=== PATIENT | male | born 1955 | race Caucasian/White ===

== ENCOUNTER 2022-04-02 23:25 | Emergency (ER) | payer MEDICARE, OTHER ==
[2022-04-02 23:58] LABS: HEMOGLOBIN 16.3 gm/dl (14.0-17.5); RED BLOOD COUNT 5.25 M/UL (4.20-5.50); WHITE BLOOD COUNT 9.2 K/UL (4.5-11.0)
[2022-04-03 00:20] LABS: BUN/CREATININE RATIO 17 (0-10)
== END 2022-04-03 04:43 | disposition left against medical advice (07) ==
LOC: ER1 23:25
PROVIDERS: Physician Assistant; Student in an Organized Health Care Education/Training Program
DX: S09.90XA Unspecified injury of head, initial encounter (principal); S39.012A Strain of muscle, fascia and tendon of lower back, initial encounter; S16.1XXA Strain of muscle, fascia and tendon at neck level, initial encounter; R41.0 Disorientation, unspecified; R07.89 Other chest pain; K21.9 Gastro-esophageal reflux disease without esophagitis; I10 Essential (primary) hypertension; F17.200 Nicotine dependence, unspecified, uncomplicated; W01.10XA Fall on same level from slipping, tripping and stumbling with subsequent striking against unspecified object, initial encounter
CPT/HCPCS: 70450; 71045; 72125; 72131; 80053; 80307; 81001; 82140; 82550; 82553; 83605; 84484; 85025; 85652; 93005; 96372; 96374; 99285; G0480; J1630; J2060